=== PATIENT | female | born 2000 | race Two or more races ===

== ENCOUNTER 2023-06-11 09:46 | Emergency (ER) | payer OTHER ==
[2023-06-11 10:12] VITALS: BP 113/78; PULSE 79; RESP 18; TEMP 98.7; BMI 16.5
[2023-06-11] MEDS ORDERED: FLUCONAZOLE 50 MG TABLET PO ONE (10:17)
[2023-06-11] MEDS ORDERED: FLUCONAZOLE 150 MG TABLET PO ONE (10:23)
[2023-06-11 11:12] LABS: HEMATOCRIT 40.8 % (32.4-45.2); HEMOGLOBIN 13.4 G/dL (10.7-15.3); MCH 29.2 pg (25.7-33.7); MCHC 32.7 g/dl (32.0-36.0); MEAN CELL VOLUME 89.1 fl (80-96); MEAN PLT VOLUME 9.2 fl (7.5-11.1); PLATELET COUNT 217.8 10^3/uL (134-434); RBC 4.58 10^6/uL (3.60-5.2); RDW 13.7 % (11.6-15.6)
[2023-06-11 11:20] LABS: ALBUMIN 4.6 g/dl (3.4-5.0); BILIRUBIN,TOTAL 0.4 mg/dl (0.2-1); CALCIUM 9.7 mg/dl (8.5-10.1); CREATININE 0.7 mg/dl (0.6-1.3); POTASSIUM 3.8 mmol/L (3.5-5.1); TOT PROT 7.4 g/dl (6.4-8.2)
[2023-06-11 11:21] LABS: HCG,QUALITATIVE URINE Negative
[2023-06-11 12:03] LABS: EPITHELIAL CELLS 0-5 /hpf; PLATELET ESTIMATE ADEQUATE
[2023-06-11 12:47] LABS: THROAT:GRP A STREP NOT DETECTED (NOTDETECTED)
== END 2023-06-11 11:46 | disposition home or self-care (01) ==
LOC: FER 09:46
DX: R53.83 Other fatigue (principal); J02.9 Acute pharyngitis, unspecified; R10.30 Lower abdominal pain, unspecified; N76.0 Acute vaginitis; N94.6 Dysmenorrhea, unspecified; U07.1 COVID-19
CPT/HCPCS: 0241U-QW; 36415; 80053; 81003; 81015; 84443; 84703; 85027; 87086; 87491; 87591; 87651; 87661; 99283-25

== ENCOUNTER 2023-06-23 19:57 | Emergency (ER) | payer OTHER ==
[2023-06-23 20:09] VITALS: BP 86/50; PULSE 88; RESP 16; TEMP 97.6; BMI 15.5
== END 2023-06-23 21:24 | disposition home or self-care (01) ==
LOC: FER 19:57
DX: N89.8 Other specified noninflammatory disorders of vagina (principal); B37.31 Acute candidiasis of vulva and vagina
CPT/HCPCS: 81003; 81015; 81025; 87086; 99284-25

== ENCOUNTER 2023-12-03 20:07 | Emergency (ER) | payer OTHER ==
[2023-12-03 20:12] VITALS: BP 99/50; PULSE 89; RESP 18; TEMP 98; BMI 16.5
== END 2023-12-03 23:42 | disposition left against medical advice (07) ==
LOC: JER 20:07
DX: R10.31 Right lower quadrant pain (principal); R11.2 Nausea with vomiting, unspecified
CPT/HCPCS: 99283-25; 99285-25

== ENCOUNTER 2023-12-04 17:30 | Emergency (ER) | payer OTHER ==
[2023-12-04 17:58] VITALS: RESP 18; TEMP 97.3; BMI 16.5
[2023-12-04] MEDS ORDERED: ACETAMINOPHEN INJECTION 100 ML IVPB ONE (18:03)
[2023-12-04] MEDS: SODIUM CHLORIDE 0.9% 500 ML INFUS.BAG IV ONE (18:05)
[2023-12-04] MEDS: ACETAMINOPHEN 1000 MG/100 ML BAG IVPB ONE (18:27)
[2023-12-04] MEDS ORDERED: ONDANSETRON 4 MG/2 ML VIAL ONE (18:29)
[2023-12-04] MEDS: ONDANSETRON 4 MG/2 ML VIAL IVPB ONE (18:32)
[2023-12-04 18:36] LABS: HEMATOCRIT 38.9 % (32.4-45.2); HEMOGLOBIN 12.9 G/dL (10.7-15.3); MCH 29.9 pg (25.7-33.7); MCHC 33.2 g/dl (32.0-36.0); MEAN CELL VOLUME 90.1 fl (80-96); MEAN PLT VOLUME 8.5 fl (7.5-11.1); PLATELET COUNT 230.4 10^3/uL (134-434); RBC 4.32 10^6/uL (3.60-5.2); RDW 13.5 % (11.6-15.6); WHITE BLOOD COUNT 8.1 10^3/uL (4.0-10.8)
[2023-12-04 18:52] LABS: PLATELET ESTIMATE ADEQUATE
[2023-12-04 18:59] LABS: ALBUMIN 4.4 g/dl (3.4-5.0); BILIRUBIN,TOTAL 0.5 mg/dl (0.2-1); CALCIUM 9.4 mg/dl (8.5-10.1); CREATININE 0.5 mg/dl (0.6-1.3); POTASSIUM 3.7 mmol/L (3.5-5.1); TOT PROT 6.8 g/dl (6.4-8.2)
[2023-12-04 21:14] VITALS: BP 91/58; PULSE 67
== END 2023-12-04 22:32 | disposition home or self-care (01) ==
LOC: FER 17:30
PROC: 3E033NZ Introduction of Analgesics, Hypnotics, Sedatives into Peripheral Vein, Percutaneous Approach (ICD-10-PCS; principal; 2023-12-04)
PROC: 3E033GC Introduction of Other Therapeutic Substance into Peripheral Vein, Percutaneous Approach (ICD-10-PCS; 2023-12-04)
DX: R10.31 Right lower quadrant pain (principal); N83.201 Unspecified ovarian cyst, right side; K52.9 Noninfective gastroenteritis and colitis, unspecified; R63.0 Anorexia; R11.0 Nausea
CPT/HCPCS: 36415; 74177-TC; 80053; 81003; 81015; 83690; 84703; 85027; 87086; 99285-25; J0131; Q9967